=== PATIENT | male | born 1935 | race Caucasian/White ===

== ENCOUNTER → 2016-11-21 | Outpatient (REF) | payer MEDICARE ==
[~2016-11-21] MED LIST: AMBI5TAB OR; ASPI81TA45 OR; ATEN25TA PO; ATOR40TA PO; DIGO0.12 PO; FEVE325S OR; FLUD1TA PO; LEXA1TAB PO; LEXAPRO OR; LINE60TAB PO; PANT40TA2 PO; PERC5TAB6 PO; PRIL20CA OR; RANI75TA2 OR; SIMV20TA2 OR; VITA2000 PO; XARE20TA PO; ZYVO100T PO
== END ==
LOC: M LAB REF 12:28
PROVIDERS: ATTEND Internal Medicine
DX: Z79.899 Other long term (current) drug therapy (principal); I48.2 Chronic atrial fibrillation

== ENCOUNTER → 2017-03-19 | Outpatient (REF) | payer MEDICARE ==
[~2017-03-19] MED LIST changes: -ATOR40TA PO; +ATOR40TA75 PO; +FLUD0.1T PO; -FLUD1TA PO; +PERC5TAB12 PO; -PERC5TAB6 PO
== END ==
LOC: M LAB REF 21:41
PROVIDERS: ATTEND Physician Assistant
DX: N39.0 Urinary tract infection, site not specified (principal)

== ENCOUNTER → 2017-05-12 | Outpatient (REF) | payer MEDICARE | LOC: M LAB REF 16:27 | PROVIDERS: ATTEND Internal Medicine | DX: I48.2 Chronic atrial fibrillation (principal) ==

== ENCOUNTER → 2017-05-29 | Outpatient (REF) | payer MEDICARE ==
[2017-05-29 18:13] LABS: VITAMIN B12 LEVEL 447 PG/ML
== END ==
LOC: M LAB REF 16:20
PROVIDERS: ATTEND Nurse Practitioner Family
DX: R41.81 Age-related cognitive decline (principal)

== ENCOUNTER → 2017-06-23 | Outpatient (CLI) | payer MEDICARE ==
[2017-06-23 15:38] LABS: BACTERIA, URINE NONE SEEN; HYALINE CAST, URINE NONE SEEN /lpf (0-1); RBC, URINE 0-1 /hpf (0-3); SQUAMOUS EPITHELIAL CELL URINE SMALL AMOUNT /hpf (SMALL AMT); WBC, URINE 0-1 /hpf (0-3)
[2017-06-23 15:39] LABS: MICROSCOPIC EXAM PERFORMED
== END ==
LOC: M SMT 11:19
PROVIDERS: ATTEND Specialist
DX: C61 Malignant neoplasm of prostate (principal); R32 Unspecified urinary incontinence; R35.1 Nocturia
CPT/HCPCS: 36415; 51798; 81015; 84153; 87086; G0463

== ENCOUNTER → 2018-01-07 | Outpatient (CLI) | payer MEDICARE | LOC: M SLEEP 19:22 | DX: G47.33 Obstructive sleep apnea (adult) (pediatric) (principal) | CPT/HCPCS: 95811 ==

== ENCOUNTER → 2018-01-25 | Outpatient (REF) | payer MEDICARE ==
[2018-01-25 13:21] LABS: APPEARANCE, URINE CLEAR (CLEAR); BACTERIA, URINE AUTO NEGATIVE (NEGATIVE); BILIRUBIN, URINE AUTO NEGATIVE (NEGATIVE); BLOOD, URINE BLOOD NEGATIVE (NEGATIVE); COLOR, URINE YELLOW (YELLOW); GLUCOSE, URINE (UA) AUTO NEGATIVE (NEGATIVE); KETONE, URINE AUTO NEGATIVE (NEGATIVE); LEUKOCYTE ESTERASE, URINE AUTO NEGATIVE (NEGATIVE); NITRITE, URINE AUTO NEGATIVE (NEGATIVE); PROTEIN, URINE AUTO 1+ mg/dL (NEGATIVE); RBC, URINE AUTO 0 /HPF (0-3); SPECIFIC GRAVITY URINE AUTO 1.016 (1.002-1.035); SQUAMOUS EPITHELIAL CELL UR AU 0 /HPF (0-6); UROBILINOGEN, URINE AUTO 0.2 mg/dL (0.0-2.0); WBC, URINE AUTO 1 /HPF (0-3)
== END ==
LOC: M LAB REF 12:59
DX: N39.0 Urinary tract infection, site not specified (principal)
CPT/HCPCS: 81001

== ENCOUNTER → 2018-05-26 | Outpatient (REF) | payer MEDICARE ==
[2018-05-26 19:26] LABS: DIGOXIN LEVEL 0.5 NG/ML (0.5-2.0)
== END ==
LOC: M LAB REF 17:07
DX: I48.2 Chronic atrial fibrillation (principal)
CPT/HCPCS: 80162

== ENCOUNTER → 2018-11-02 | Outpatient (REF) | payer MEDICARE ==
[~2018-11-02] MED LIST changes: -PANT40TA2 PO; +PANT40TA3 PO; -ZYVO100T PO; +ZYVO1TAB PO
[2018-11-04 08:20] LABS: LDL DIRECT 101 mg/dL (0-99)
== END ==
LOC: M LAB REF 16:56
PROVIDERS: ATTEND Internal Medicine
DX: I48.2 Chronic atrial fibrillation (principal); E78.00 Pure hypercholesterolemia, unspecified

== ENCOUNTER → 2018-12-01 | Outpatient (REF) | payer MEDICARE ==
[~2018-12-01] MED LIST changes: +LEXA1TAB OR; -LEXAPRO OR; +LINE1TAB PO; -LINE60TAB PO
== END ==
LOC: M LAB REF 17:09
PROVIDERS: ATTEND Internal Medicine
DX: I48.2 Chronic atrial fibrillation (principal); Z79.01 Long term (current) use of anticoagulants

== ENCOUNTER → 2019-03-10 | Outpatient (CLI) | payer MEDICARE ==
--- NOTE | 2019-03-15 09:18 | SLEEPCENT ---
DATE OF PROCEDURE: 03/10/2019 ORDERED BY: Dr. Anguiano Nocturnal polysomnography was performed for retitration of pressure therapy in this patient with known obstructive sleep apnea syndrome. For testing, a [employer]ISup Simplus full-face mask of small size was used, initial bilevel pressure of inspiratory 20 over expiratory 16 was applied to the circuit the lights were extinguished. 7 hours and 2 minutes of data were reviewed. There were 178.5 minutes of sleep identified. Sleep latency was short at 4 minutes. Rapid eye movement (REM) latency was normal at 114 minutes. Sleep architecture remained quite fragmented with periods of wake throughout the study. There were two REM cycles noted. Overall sleep efficiency was only 43.2%. The electrocardiogram showed atrial fibrillation with controlled ventricular response rate of 76. Electroencephalogram (EEG) showed reasonably normal waveforms for awake and sleep stages. Persistence of respiratory events prompted an increase in pressure therapy and despite increases in pressure, central obstructive events were incompletely palliated. A backup rate was added and pressures were once again dropped. Obstructive events occurred. Best sleep was identified in the latter portion of the study on a bilevel pressure inspiratory 24 over expiratory of 20 with a backup rate of 10 to address central apneas. Some limb activity was noted during the study as well. Limb movement arousal index was 20.2, up significantly from prior study in 2018. 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 RECOMMENDATIONS: Nightly use of pressure therapy using a bilevel device inspiratory 24 over expiratory of 20 with a backup rate of 10 to address central apneas.
== END ==
LOC: M SLEEP 19:20
PROVIDERS: ATTEND Internal Medicine Pulmonary Disease
DX: G47.33 Obstructive sleep apnea (adult) (pediatric) (principal)

== ENCOUNTER → 2019-05-11 | Outpatient (REF) | payer MEDICARE | LOC: M LAB REF 12:05 | PROVIDERS: ATTEND Internal Medicine | DX: I48.20 Chronic atrial fibrillation, unspecified (principal); Z79.891 Long term (current) use of opiate analgesic ==

== ENCOUNTER → 2019-05-30 | Outpatient (CLI) | payer MEDICARE ==
--- NOTE | 2019-06-02 13:52 | SLEEPCENT ---
DATE OF STUDY: 05/30/2019 ORDERING PROVIDER: Andrew Anguiano MD Nocturnal polysomnography was performed for evaluation of sleep physiology. 7 hours and 38 minutes of data were reviewed. There were 162.5 minutes of sleep identified. Sleep latency was short at 18.5 minutes. Rapid eye movement (REM) latency was prolonged at 316 minutes. Sleep architecture was poor with significant fragmentation. Overall sleep efficiency was 36%. The patient's electrocardiogram (EKG) showed atrial fibrillation with an average heart rate of 75 beats per minute. Electroencephalogram (EEG) showed fairly normal waveforms for awake and sleep. There were 170 respiratory events identified of 10 seconds in duration or greater for an apnea-hypopnea index of 62.8. The events were predominantly central and mixed. 88 central events, 52 mixed apneas. 140 of the 170 events being central and mixed. Arousals from respiratory events occurred 52.4 times per hour and also some limb activity, but limb movement arousal index was only 5.5. Having clearly established the presence of obstructive sleep apnea syndrome, testing was stopped shortly after 01:00 a.m. for the application of pressure therapy. The patient was fit with a [employer]Med AirFit F20 full face mask of large size. An initial pressure of 4 cm of water was applied to the circuit, and the lights were extinguished. Persistence of apneas prompted an increase in pressure therapy despite optimal mask fit and minimal air leak. The patient was changed to a bilevel device. Titration was continued; and given the occurrence of significant central events, a backup rate was added. Despite increases in pressure and the addition of backup rate, an optimal pressure was not achieved. Previous testing would suggest that the patient would do better on higher pressures than achieved during this study. 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 Apnea-hypopnea index 62.8. RECOMMENDATION: Nightly use of bilevel pressure therapy with a backup rate is recommended, given the severity and complexity of this patient's condition. On the basis of recent previous studies, a bilevel pressure of inspiratory 24 over expiratory 20 with a backup rate of 10 may be most reasonable. Close clinical followup will be necessary.
== END ==
LOC: M SLEEP 19:26
PROVIDERS: ATTEND Internal Medicine Pulmonary Disease
DX: G47.33 Obstructive sleep apnea (adult) (pediatric) (principal); G47.31 Primary central sleep apnea

== ENCOUNTER → 2019-09-28 | Outpatient (REF) | payer MEDICARE ==
[2019-09-28 13:29] LABS: APPEARANCE, URINE CLEAR (CLEAR); BACTERIA, URINE AUTO NEGATIVE (NEGATIVE); BILIRUBIN, URINE AUTO NEGATIVE (NEGATIVE); BLOOD, URINE BLOOD NEGATIVE (NEGATIVE); COLOR, URINE YELLOW (YELLOW); GLUCOSE, URINE (UA) AUTO NEGATIVE (NEGATIVE); KETONE, URINE AUTO TRACE mg/dL (NEGATIVE); LEUKOCYTE ESTERASE, URINE AUTO NEGATIVE (NEGATIVE); MUCUS, URINE SMALL (NEGATIVE); NITRITE, URINE AUTO NEGATIVE (NEGATIVE); PROTEIN, URINE AUTO 1+ mg/dL (NEGATIVE); RBC, URINE AUTO 1 /HPF (0-3); SPECIFIC GRAVITY URINE AUTO 1.027 (1.002-1.035); SQUAMOUS EPITHELIAL CELL UR AU 0 /HPF (0-6); UROBILINOGEN, URINE AUTO 0.2 mg/dL (0.0-2.0); WBC, URINE AUTO 1 /HPF (0-3)
== END ==
LOC: M SMT 12:55
PROVIDERS: ATTEND Nurse Practitioner Women's Health
DX: R32 Unspecified urinary incontinence (principal)
CPT/HCPCS: 51798; 81001; 87086; G0463

== ENCOUNTER → 2019-12-21 | Outpatient (REF) | payer MEDICARE | LOC: M LAB REF 12:24 | PROVIDERS: ATTEND Internal Medicine | DX: I48.20 Chronic atrial fibrillation, unspecified (principal) ==

== ENCOUNTER → 2020-03-27 | Outpatient (REF) | payer MEDICARE ==
[~2020-03-27] MED LIST changes: +PANT40TA29 PO; -PANT40TA3 PO
[2020-05-14 22:23] LABS: APPEARANCE, URINE CLEAR (CLEAR); BACTERIA, URINE AUTO NEGATIVE (NEGATIVE); BILIRUBIN, URINE AUTO NEGATIVE (NEGATIVE); BLOOD, URINE BLOOD NEGATIVE (NEGATIVE); COLOR, URINE YELLOW (YELLOW); GLUCOSE, URINE (UA) AUTO NEGATIVE (NEGATIVE); KETONE, URINE AUTO NEGATIVE (NEGATIVE); LEUKOCYTE ESTERASE, URINE AUTO NEGATIVE (NEGATIVE); MUCUS, URINE SMALL (NEGATIVE); NITRITE, URINE AUTO NEGATIVE (NEGATIVE); PROTEIN, URINE AUTO NEGATIVE (NEGATIVE); RBC, URINE AUTO 1 /HPF (0-3); SPECIFIC GRAVITY URINE AUTO 1.015 (1.002-1.035); SQUAMOUS EPITHELIAL CELL UR AU 0 /HPF (0-6); UROBILINOGEN, URINE AUTO 0.2 mg/dL (0.0-2.0); WBC, URINE AUTO 1 /HPF (0-3)
== END ==
LOC: M LAB REF 16:51
PROVIDERS: ATTEND Physician Assistant Medical
DX: N39.0 Urinary tract infection, site not specified (principal)

== ENCOUNTER → 2020-06-26 | Outpatient (REF) | payer MEDICARE | LOC: M LAB REF 16:13 | PROVIDERS: ATTEND Internal Medicine | DX: I48.20 Chronic atrial fibrillation, unspecified (principal) ==

== ENCOUNTER → 2020-12-24 | Outpatient (REF) | payer MEDICARE | LOC: M LAB REF 17:24 | PROVIDERS: ATTEND Internal Medicine | DX: I48.20 Chronic atrial fibrillation, unspecified (principal) ==

== ENCOUNTER → 2021-08-08 | Outpatient (REF) | payer MEDICARE | LOC: M SFHCCAPE 13:21 | PROVIDERS: ATTEND Physician Assistant | DX: J22 Unspecified acute lower respiratory infection (principal) | CPT/HCPCS: 87426; G0463; U0003 ==

== ENCOUNTER → 2021-09-02 | Outpatient (REF) | payer MEDICARE ==
[2021-09-02 17:39] LABS: FOLATE 19.8 NG/ML
== END ==
LOC: M LAB REF 16:05
PROVIDERS: ATTEND Physician Assistant Medical
DX: R41.81 Age-related cognitive decline (principal)

== ENCOUNTER → 2021-09-10 | Outpatient (REF) | payer MEDICARE ==
[2021-09-10 20:29] LABS: APPEARANCE, URINE CLEAR (CLEAR); BILIRUBIN, URINE AUTO NEGATIVE (NEGATIVE); COLOR, URINE YELLOW (YELLOW); GLUCOSE, URINE (UA) AUTO NEGATIVE (NEGATIVE); KETONE, URINE AUTO NEGATIVE (NEGATIVE); LEUKOCYTE ESTERASE, URINE AUTO NEGATIVE (NEGATIVE); NITRITE, URINE AUTO NEGATIVE (NEGATIVE); PROTEIN, URINE AUTO 2+ mg/dL (NEGATIVE); SPECIFIC GRAVITY URINE AUTO 1.024 (1.002-1.035)
[2021-09-10 20:30] LABS: BACTERIA, URINE AUTO NEGATIVE (NEGATIVE); BLOOD, URINE BLOOD 2+ (NEGATIVE); MUCUS, URINE SMALL (NEGATIVE); RBC, URINE AUTO 2 /HPF (0-3); SQUAMOUS EPITHELIAL CELL UR AU 0 /HPF (0-6); WBC, URINE AUTO 0 /HPF (0-3)
== END ==
LOC: M SMT 16:53
PROVIDERS: ATTEND Urology
DX: N39.498 Other specified urinary incontinence (principal)

== ENCOUNTER → 2022-04-17 | Outpatient (CLI) | payer MEDICARE | LOC: M WUC 10:47 | PROVIDERS: ATTEND Physician Assistant | DX: M19.032 Primary osteoarthritis, left wrist (principal) ==

== ENCOUNTER → 2022-06-24 | Outpatient (CLI) | payer MEDICARE | LOC: M SOG 07:59 | PROVIDERS: ATTEND Orthopaedic Surgery | DX: M19.031 Primary osteoarthritis, right wrist (principal); M19.032 Primary osteoarthritis, left wrist ==

== ENCOUNTER → 2022-10-02 | Outpatient (CLI) | payer MEDICARE | LOC: M SOG 08:17 | PROVIDERS: ATTEND Orthopaedic Surgery | DX: M25.562 Pain in left knee (principal) ==

== ENCOUNTER → 2022-10-10 | Outpatient (REF) | payer MEDICARE ==
[2022-10-10 14:37] LABS: APPEARANCE, URINE CLEAR (CLEAR); BACTERIA, URINE AUTO NEGATIVE (NEGATIVE); BILIRUBIN, URINE AUTO NEGATIVE (NEGATIVE); BLOOD, URINE BLOOD 2+ (NEGATIVE); COLOR, URINE YELLOW (YELLOW); GLUCOSE, URINE (UA) AUTO NEGATIVE (NEGATIVE); KETONE, URINE AUTO NEGATIVE (NEGATIVE); LEUKOCYTE ESTERASE, URINE AUTO NEGATIVE (NEGATIVE); NITRITE, URINE AUTO NEGATIVE (NEGATIVE); PROTEIN, URINE AUTO 2+ mg/dL (NEGATIVE); RBC, URINE AUTO 9 /HPF (0-3); SPECIFIC GRAVITY URINE AUTO 1.017 (1.002-1.035); SQUAMOUS EPITHELIAL CELL UR AU 1 /HPF (0-6); UROBILINOGEN, URINE AUTO 0.2 mg/dL (0.0-2.0); WBC, URINE AUTO 1 /HPF (0-3)
== END ==
LOC: M SMT 13:26
PROVIDERS: ATTEND Urology
DX: N39.41 Urge incontinence (principal)

== ENCOUNTER → 2022-11-28 | Outpatient (REF) | payer MEDICARE ==
[~2022-11-28] MED LIST changes: +DONE10TA90 PO; +LANO125T4 PO; +MEMA28CA12 PO; +MYRB50TA PO; +PANT20TA6 PO; +TAMS1CAP17 PO; +VITA100093 PO
== END ==
LOC: M SMT 13:09
PROVIDERS: ATTEND Urology
DX: N32.81 Overactive bladder (principal)

== ENCOUNTER → 2022-12-02 | Outpatient (REF) | payer MEDICARE | LOC: M LAB REF 12:48 | PROVIDERS: ATTEND Internal Medicine | DX: Z01.810 Encounter for preprocedural cardiovascular examination (principal) ==

== ENCOUNTER → 2022-12-06 | Outpatient (CLI) | payer MEDICARE ==
[~2022-12-06] MED LIST changes: +BACT800T5 PO
== END ==
LOC: M RAD 10:37
PROVIDERS: ATTEND Urology
DX: I50.9 Heart failure, unspecified (principal); N32.81 Overactive bladder

== ENCOUNTER 2022-12-08 06:43 | Day surgery (SDC) | payer MEDICARE ==
[~2022-12-08] VITALS: Ht 170.2 cm; Wt 87.6 kg
[~2022-12-08 06:43] MED LIST changes: -BACT800T5 PO; +ceFAZolin SOD 2 GM in IV 1 EA IV ONE
[2022-12-08] MEDS ORDERED: LR 1,000 ML IV SCH (07:55)
[2022-12-08] MEDS ORDERED: fentaNYL 100 MCG/2 ML INJECTION As Ordered ONE (07:59)
[2022-12-08] MEDS ORDERED: propofoL 200 MG/20 ML VIAL As Ordered ONE (08:00)
[2022-12-08] MEDS ORDERED: LIDOCAINE 2% 100MG/5ML SDV (FOR ANES.) As Ordered ONE (08:00)
[2022-12-08] MEDS ORDERED: ONDANSETRON 4MG 2ML VIAL As Ordered ONE (08:02)
[2022-12-08] MEDS ORDERED: BOTOX THERAPEUTIC 100 UNIT VIAL As Ordered ONE (08:24)
[2022-12-08] MEDS ORDERED: ONDANSETRON 4MG 2ML VIAL IV PRN (08:55)
[2022-12-08] MEDS ORDERED: fentaNYL 100 MCG/2 ML INJECTION IV PRN (08:55)
[2022-12-08] MEDS ORDERED: BACT800T5 PO (08:58)
[2022-12-08 11:18] VITALS: BP 143/93
== END 2022-12-08 11:17 | disposition home or self-care (01) ==
LOC: M SDC 06:43
PROVIDERS: ATTEND Urology
DX: N32.81 Overactive bladder (principal); R12 Heartburn; M19.90 Unspecified osteoarthritis, unspecified site; J67.0 Farmer's lung; G47.30 Sleep apnea, unspecified; E78.9 Disorder of lipoprotein metabolism, unspecified; C61 Malignant neoplasm of prostate; Z79.899 Other long term (current) drug therapy; Z79.01 Long term (current) use of anticoagulants
CPT/HCPCS: 52287; A4215; J0585; J0690; J2405; J3010

== ENCOUNTER → 2022-12-23 | Outpatient (REF) | payer MEDICARE ==
[~2022-12-23] MED LIST changes: +BACT800T5 PO; -ceFAZolin SOD 2 GM in IV 1 EA IV ONE
[2022-12-23 14:53] LABS: APPEARANCE, URINE CLEAR (CLEAR); BACTERIA, URINE AUTO NEGATIVE (NEGATIVE); BILIRUBIN, URINE AUTO NEGATIVE (NEGATIVE); BLOOD, URINE BLOOD 2+ (NEGATIVE); COLOR, URINE YELLOW (YELLOW); GLUCOSE, URINE (UA) AUTO NEGATIVE (NEGATIVE); KETONE, URINE AUTO NEGATIVE (NEGATIVE); LEUKOCYTE ESTERASE, URINE AUTO NEGATIVE (NEGATIVE); NITRITE, URINE AUTO NEGATIVE (NEGATIVE); PROTEIN, URINE AUTO 2+ mg/dL (NEGATIVE); RBC, URINE AUTO 6 /HPF (0-3); SPECIFIC GRAVITY URINE AUTO 1.011 (1.002-1.035); SQUAMOUS EPITHELIAL CELL UR AU 0 /HPF (0-6); UROBILINOGEN, URINE AUTO 0.2 mg/dL (0.0-2.0); WBC, URINE AUTO 1 /HPF (0-3)
== END ==
LOC: M SMT 13:08
PROVIDERS: ATTEND Urology
DX: N32.81 Overactive bladder (principal)

== ENCOUNTER → 2023-01-28 | Outpatient (REF) | payer MEDICARE ==
[~2023-01-28] MED LIST changes: +SOLI10TA PO; +VITMTA PO; +XARE15TA PO
[2023-01-30 23:07] LABS: PSA TOTAL 3.2 ng/mL (0.0-4.0)
== END ==
LOC: M LAB REF 16:16
PROVIDERS: ATTEND Internal Medicine
DX: Z85.46 Personal history of malignant neoplasm of prostate (principal); R97.20 Elevated prostate specific antigen [PSA]

== ENCOUNTER 2023-02-02 06:50 | Day surgery (SDC) | payer MEDICARE ==
[~2023-02-02] VITALS: Ht 172.7 cm; Wt 84.8 kg
[~2023-02-02 06:50] MED LIST changes: +ceFAZolin SOD 2 GM in IV 1 EA IV ONE
[2023-02-02] MEDS ORDERED: ONDANSETRON 4MG 2ML VIAL As Ordered ONE (07:01)
[2023-02-02] MEDS ORDERED: LIDOCAINE 2% 100MG/5ML SDV (FOR ANES.) As Ordered ONE (07:01)
[2023-02-02] MEDS ORDERED: propofoL 200 MG/20 ML VIAL As Ordered ONE (07:01)
[2023-02-02] MEDS ORDERED: LR 1,000 ML IV SCH (07:50)
[2023-02-02] MEDS ORDERED: fentaNYL 100 MCG/2 ML INJECTION As Ordered ONE (07:53)
[2023-02-02] MEDS ORDERED: BOTOX THERAPEUTIC 100 UNIT VIAL As Ordered ONE (08:11)
[2023-02-02] MEDS ORDERED: ACETAMINOPHEN 1000MG 100ML IV BAG As Ordered ONE (08:28)
[2023-02-02] MEDS ORDERED: MACR100C43 PO (08:41)
[2023-02-02 08:57] VITALS: BP 136/79; TEMP 97.7; O2SAT 97
== END 2023-02-02 09:18 | disposition home or self-care (01) ==
LOC: M SDC 06:50
PROVIDERS: ATTEND Urology
DX: N32.81 Overactive bladder (principal); R32 Unspecified urinary incontinence; N30.40 Irradiation cystitis without hematuria; K21.9 Gastro-esophageal reflux disease without esophagitis; J67.0 Farmer's lung; M19.90 Unspecified osteoarthritis, unspecified site; F03.A0 Unspecified dementia, mild, without behavioral disturbance, psychotic disturbance, mood disturbance, and anxiety; G47.30 Sleep apnea, unspecified; Z85.46 Personal history of malignant neoplasm of prostate; N40.1 Benign prostatic hyperplasia with lower urinary tract symptoms; Z79.899 Other long term (current) drug therapy; Z79.01 Long term (current) use of anticoagulants
CPT/HCPCS: 52287; 87086; A4215; J0131; J0585; J0690; J1100; J2405; J3010

== ENCOUNTER 2023-05-21 06:34 | Day surgery (SDC) | payer MEDICARE ==
[~2023-05-21] VITALS: Ht 170.2 cm; Wt 85.1 kg
[~2023-05-21 06:34] MED LIST changes: +DONE10TA90; +FLUT50SP17; +LORA-1041; +MACR100C43 PO; +XARE15TA
[2023-05-21] MEDS ORDERED: LIDOCAINE 1% SDV 30ML VIAL As Ordered ONE (06:46)
[2023-05-21] MEDS ORDERED: LR 1,000 ML IV SCH (07:10)
[2023-05-21] MEDS ORDERED: fentaNYL 100 MCG/2 ML INJECTION As Ordered ONE (07:11)
[2023-05-21] MEDS ORDERED: MIDAZOLAM INJ 2MG/2ML VIAL As Ordered ONE (07:12)
[2023-05-21] MEDS ORDERED: propofoL 200 MG/20 ML VIAL As Ordered ONE (07:12)
[2023-05-21] MEDS ORDERED: LIDOCAINE 2% 100MG/5ML SDV (FOR ANES.) As Ordered ONE (07:12)
[2023-05-21] MEDS ORDERED: ONDANSETRON 4MG 2ML VIAL As Ordered ONE (07:12)
[2023-05-21] MEDS ORDERED: ACETAMINOPHEN 1000MG 100ML IV BAG As Ordered ONE (08:22)
[2023-05-21] MEDS ORDERED: CEPH500C PO (08:59)
[2023-05-21 10:51] VITALS: BP 161/84; TEMP 97.4; O2SAT 96
== END 2023-05-21 10:56 | disposition home or self-care (01) ==
LOC: M SDC 06:34
PROVIDERS: ATTEND Urology
DX: R32 Unspecified urinary incontinence (principal); I48.91 Unspecified atrial fibrillation; G47.30 Sleep apnea, unspecified; Z79.899 Other long term (current) drug therapy; Z79.01 Long term (current) use of anticoagulants
CPT/HCPCS: 64561; 76000; C1778; C1897; J0131; J0690; J2250; J2405; J3010

== ENCOUNTER 2023-06-01 06:13 | Day surgery (SDC) | payer MEDICARE ==
[~2023-06-01] VITALS: Ht 170.2 cm; Wt 85.3 kg
[~2023-06-01 06:13] MED LIST changes: +CEPH500C PO
[2023-06-01] MEDS ORDERED: ONDANSETRON 4MG 2ML VIAL As Ordered ONE (07:09)
[2023-06-01] MEDS ORDERED: LIDOCAINE 2% 100MG/5ML SDV (FOR ANES.) As Ordered ONE (07:09)
[2023-06-01] MEDS ORDERED: propofoL 200 MG/20 ML VIAL As Ordered ONE (07:09)
[2023-06-01] MEDS ORDERED: LIDOCAINE 1% MDV 50ML VIAL As Ordered ONE (07:12)
[2023-06-01] MEDS ORDERED: fentaNYL 100 MCG/2 ML INJECTION As Ordered ONE (07:13)
[2023-06-01] MEDS ORDERED: LIDOCAINE 1% SDV 30ML VIAL As Ordered ONE (07:13)
[2023-06-01] MEDS ORDERED: ACETAMINOPHEN 1000MG 100ML IV BAG As Ordered ONE (07:45)
[2023-06-01] MEDS ORDERED: CEPH500C PO (08:41)
[2023-06-01] MEDS ORDERED: HYDR-3713 PO (08:41)
[2023-06-01 08:55] VITALS: BP 138/68; TEMP 97.1; O2SAT 96
== END 2023-06-01 10:10 | disposition home or self-care (01) ==
LOC: M SDC 06:13
PROVIDERS: ATTEND Urology
DX: R32 Unspecified urinary incontinence (principal); I48.91 Unspecified atrial fibrillation; G47.30 Sleep apnea, unspecified; Z79.899 Other long term (current) drug therapy; Z79.01 Long term (current) use of anticoagulants
CPT/HCPCS: 64590; 76000; 95971; C1778; C1787; C1894; J0131; J1100; J2405; J3010

== ENCOUNTER → 2024-01-12 | Outpatient (CLI) | payer MEDICARE ==
[~2024-01-12] MED LIST changes: -FLUT50SP17; +FLUTISP; +HYDR-3713 PO; -ceFAZolin SOD 2 GM in IV 1 EA IV ONE
== END ==
LOC: M SOG 07:52
PROVIDERS: ATTEND Physician Assistant
DX: M25.531 Pain in right wrist (principal)

== ENCOUNTER → 2024-02-19 | Outpatient (CLI) | payer MEDICARE | LOC: M WUC 09:11 | PROVIDERS: ATTEND Internal Medicine | DX: M79.605 Pain in left leg (principal) ==